=== PATIENT | male | born 1940 | race Caucasian/White ===

== ENCOUNTER 2022-11-30 17:14 | Emergency (ER) | payer MEDICARE, OTHER | END 2022-11-30 19:00 | disposition home or self-care (01) | LOC: DL.ED 17:14 | DX: M19.011 Primary osteoarthritis, right shoulder (principal); I25.10 Atherosclerotic heart disease of native coronary artery without angina pectoris; E78.00 Pure hypercholesterolemia, unspecified; I10 Essential (primary) hypertension; Z79.82 Long term (current) use of aspirin; Z79.899 Other long term (current) drug therapy | CPT/HCPCS: 73030-RT; 99283 ==